=== PATIENT | male | born 1960 ===

== ENCOUNTER 2025-05-24 11:50 | Emergency (ER) | payer SELFPAY ==
[~2025-05-24] VITALS: Ht 167.6 cm; Wt 90.7 kg
[2025-05-24] MEDS: 0.9%NACL 1000ML 1,000 ML IV ONE (12:35)
[2025-05-24] MEDS: LOPERAMIDE HCL 2 MG CAP PO ONE (12:35)
[2025-05-24 13:07] LABS: CREATININE 1.1 mg/dL (0.5-1.3); GLOMERULAR FILTR. RATE CALC 74.0 mL/min (>90); GLUCOSE,RANDOM 98.0 mg/dL (70-105); SODIUM SERUM 140.0 mmol/L (136-145); UREA NITROGEN, BLOOD 14.0 mg/dL (7-18)
[2025-05-24 13:13] LABS: ASPARTATE AMINOTRANSFERASE 16.0 U/L (10-37); IMMATURE GRANULOCYTE ABSOLUTE 0.03 K/uL (0-1); NUCLEATED RED BLOOD CELLS 0.0 % (0.0-0.19); PLATELET COUNT (AUTO) 217 K/uL (130-400); RED BLOOD CELL COUNT(AUTO) 4.58 MIL/uL (4.50-6.20); RED CELL DISTRIBUTION WIDTH 12.7 % (11.0-15.5); TOTAL PROTEIN, SERUM 7.2 g/dL (6.0-8.3); WHITE BLOOD COUNT (AUTO) 8.7 K/uL (4.8-10.8)
[2025-05-24] MEDS ORDERED: DICY20TA2 PO (13:32)
[2025-05-24] MEDS ORDERED: LOPE2CAP PO (13:32)
--- NOTE | 2025-05-24 13:32 | ERN ---
ED Note History of Present Illness Stated Complaint: DIARRHEA Chief Complaint: Diarrhea Time Seen by MD: 12:08 Dictation: 64-year-old male presenting to the emergency department with 2-3 days of diarrhea, watery nonbloody, no abdominal pain no fever no nausea vomiting and d enies any sick contacts or recent antibiotic usage. Allergies: Coded Allergies: codeine (Unverified Allergy, Unknown, 05/24/25) Past Medical History Past Medical History: High Cholesterol Additional Past Medical Hx: PITUATARY GLAND CALCIFIED. Surgical History: Other Surgical History Other: STENTS IN PLACE Review of System Dictation Constitutional: Negative for fever,chills, and weight loss Eyes: Negative for injury, pain,redness, and discharge ENT: Negative for injury,pain or swelling Cardiovascular: Negative for chest pain, palpitations, and edema Respiratory: Negative for shortness of breath, cough, and wheezing, Abdomen/GI: Per HPI : Negative for injury, bleeding and discharge MS/Extremity: Negative for injury and deformity Skin: Negative for rash, and discoloration Neuro: Negative for headache, weakness, numbness, tingling, and seizure Psych: Negative for suicide ideation, homicidal ideation, and hallucinations Initial Vital Sign VS Vital Signs Date Time Temp Pulse Resp B/P (MAP) Pulse Ox O2 Delivery O2 Flow Rate FiO2 05/24/25 11:51 98.1 66 20 147/54 99 Room Air 05/24/25 12:04 0 21 Physical Exam Dictation General: awake, alert, NAD Head/Face: Normocephalic, atraumatic Eyes: PERRL, EOMI, vision at baseline ENT: oral cavity clear, TMs clear, no signs of infection Neck: Trachea midline, supple, no nuchal rigidity Cardiovascular: RRR, normal S1/S2, No MRGs, no JVD Respiratory: CTAB, no respiratory distress, No rales or wheezes Abdomen: Soft, non-tender, non-distended, normal bowel sounds, no guarding or rebound. Skin: Warm, dry, normal turgor, no rash MS/Extremity: Pulses equal, no cyanosis, neurovascular intact, FROM Neuro: COAx4, GCS 15, strength 5/5, CN 2-12 intact, normal cerebellar exam, normal gait, Psych: Normal behavior, mood, and affect normal Results (Laboratory/Radiology) Laboratory/Radiology Laboratory Tests Test 05/24/25 12:30 White Blood Count 8.7 K/uL (4.8-10.8) Red Blood Count 4.58 MIL/uL (4.50-6.20) Hemoglobin 14.6 g/dL (14.0-18.0) Hematocrit 42.6 % (42-54) Mean Corpuscular Volume 93.0 fL (79-99) Mean Corpuscular Hemoglobin 31.9 pg (27.0-33.0) Mean Corpuscular Hemoglobin Concent 34.3 g/dL (32.0-36.0) Red Cell Distribution Width 12.7 % (11.0-15.5) Platelet Count 217 K/uL (130-400) Mean Platelet Volume 8.9 fL (7.5-10.5) Immature Granulocyte % (Auto) 0.3 % (0-1) Neutrophils (%) (Auto) 76.3 % (40.0-77.0) Lymphocytes (%) (Auto) 13.2 % (21.0-51.0) L Monocytes (%) (Auto) 7.2 % (3.0-13.0) Eosinophils (%) (Auto) 2.5 % (0.0-8.0) Basophils (%) (Auto) 0.5 % (0.0-5.0) Neutrophils # (Auto) 6.7 K/uL (1.8-7.7) Lymphocytes # (Auto) 1.2 K/uL (1.0-4.8) Monocytes # (Auto) 0.6 K/uL (0.1-1.0) Eosinophils # (Auto) 0.22 K/uL (0.00-0.70) Basophils # (Auto) 0.04 K/uL (0.00-0.20) Absolute Immature Granulocyte (auto 0.03 K/uL (0-1) Nucleated Red Blood Cells 0.0 % (0.0-0.19) Sodium Level 140 mmol/L (136-145) Potassium Level 4.0 mmol/L (3.5-5.1) Chloride Level 104 mmol/L (101-111) Carbon Dioxide Level 30 mmol/L (21-32) Blood Urea Nitrogen 14 mg/dL (7-18) Creatinine 1.1 mg/dL (0.5-1.3) Glomerular Filtration Rate Calc 74 mL/min (>90) Random Glucose 98 mg/dL (70-105) Total Calcium 8.6 mg/dL (8.5-10.1) Total Bilirubin 0.6 mg/dL (0.2-1.0) Direct Bilirubin 0.2 mg/dL (0.0-0.3) Aspartate Amino Transf (AST/SGOT) 16 U/L (10-37) Alanine Aminotransferase (ALT/SGPT) 22 U/L (12-78) Alkaline Phosphatase 47 U/L (50-136) L Total Protein 7.2 g/dL (6.0-8.3) Albumin 3.7 g/dL (3.5-5.0) Lipase 53 U/L (16-77) Labs Reviewed?: Yes ED Course ED Course Orders Procedure Category Date Status Time Basic Metabolic Panel LAB 05/24/25 Complete 12:12 Cbc With Differential LAB 05/24/25 Complete 12:12 Hepatic Function Panel LAB 05/24/25 Complete 12:12 Lipase LAB 05/24/25 Complete 12:12 Ondansetron 4mg Inj PHA 05/24/25 Complete (Zofran 4mg Inj) 12:12 Loperamide Hcl 2 Mg PHA 05/24/25 Complete Cap (Imodium) 12:30 0.9%Nacl 1000ml (Ns PHA 05/24/25 Complete 1000ml) 12:30 Current Medications Medications (Trade) Dose Ordered Sig/Christi Route PRN Reason Start Time Stop Time Status Last Admin Dose Admin Loperamide HCl (Imodium) 4 mg ONCE ONCE PO 05/24/25 12:30 05/24/25 12:31 DC 05/24/25 12:35 Ondansetron HCl (zoFRAN 4MG INJ) 4 mg ONCE STAT IVP 05/24/25 12:12 05/24/25 12:16 DC 05/24/25 12:35 Sodium Chloride 1,000 ml @ 0 mls/hr ONCE ONCE IV 05/24/25 12:30 05/24/25 12:31 DC 05/24/25 12:35 Vital Signs Date Time Temp Pulse Resp B/P (MAP) Pulse Ox O2 Delivery O2 Flow Rate FiO2 05/24/25 12:04 98.1 66 20 147/54 99 Room Air* 0 21 05/24/25 11:51 98.1 66 20 147/54 99 Room Air Medical Decision Making MDM MDM: Differential diagnosis: Rationale: Tests considered and ordered secondary to shared decision making inc lude: Previous outside records reviewed: Old ER visits. Risk of complication and/or morbidity or mortality of patient management: None Medications-Per medication reconciliation Need for hospitalization: Patient does not meet criteria for hospitalization. Need for emergency major/minor surgery: No There are no social concerns with this patient. Prescription drug management Prescriptions will include symptomatic care Patient's prior external medical records from other ER visits were reviewed by me as indicated. Prior testing and results from previous visits were reviewed. Prior tests were taken into account with medical decision making and resource utilization, independent historian/historians were used to obtain complete medical history. I independently interpreted the test that were performed, results were reviewed by me and considered findings on radiology if ordered. Medical management and examination interpretation discussions were had by me with other qualified healthcare professionals as indicated for the patient's care. 64-year-old male with acute gastroenteritis, nonbloody diarrhea nontoxic vital signs stable labs workup negative, prescriptions given stable for discharge. DX & DISP Disposition: Discharge Departure Impression: Primary Impression: Acute diarrhea Condition: Stable Scripts Dicyclomine HCl (Bentyl) 20 Mg Tab 1 TAB PO TID for irritable bowel symptoms for 10 Days, #30 TAB 0 Refills Prov: ADDISON SOSA MD 05/24/25 Loperamide HCl (Loperamide) 2 Mg Capsule 2 MG PO 5XDAY for diarrhea, #10 CAP 0 Refills Take 2 tablets initially and then 1 tablet with every loose bowel movement. Prov: ADDISON SOSA MD 05/24/25 ADDISON SOSA MD May 24, 2025 13:32
[2025-05-24 13:46] VITALS: BP 132/60; PULSE 68; RESP 20; TEMP 98.1; O2SAT 99
== END 2025-05-24 13:48 | disposition home or self-care (01) ==
LOC: EDH 11:50
DX: R19.7 Diarrhea, unspecified (principal); E78.00 Pure hypercholesterolemia, unspecified; Z88.5 Allergy status to narcotic agent
CPT/HCPCS: 99284; 96374; 80076; 80048; 83690; 85025; 36415; J7030; J2405